=== PATIENT | male | born 1980 | race African-American/Black ===

== ENCOUNTER 2017-01-27 18:01 | Inpatient (IN) | payer OTHER ==
[~2017-01-27] VITALS: Ht 182.9 cm; Wt 103.1 kg
[2017-01-27 18:03] VITALS: BP 137/74; PULSE 89; RESP 14; TEMP 98.6; O2SAT 98
--- NOTE | 2017-01-27 18:35 | PD ---
HPI Chief Complaint: Psychiatric Symptoms Time Seen by Provider: 18:25 Travel History International Travel<30 days: No Contact w/Intl Traveler<30days: No Traveled to known affect area: No History of Present Illness HPI This is a 36-year-old male who reports a history of schizophrenia and diabetes who presents voluntarily requesting psychiatric evaluation. He reports that he has a long-standing history of schizophrenia with auditory hallucinations telling him to kill himself. Over the past few days some Tums have been worse which prompted evaluation today. He reports that in the past he was seeing a psychiatrist, he does not remember the name of the psychiatrist, but secondary to insurance reasons he no longer sees him. He denies any homicidal ideation. He endorses cocaine use, most recently yesterday. Denies any other drug use. His only other complaint at this time is of mild blurred vision which he was experiencing earlier today in both eyes, has mostly resolved, and he felt that it may be secondary to high blood sugar. He reports a history of diabetes, previously was on metformin but quit using it "a while ago." PFSH Past Medical History Diabetes: Yes Schizophrenia: Yes Social History Alcohol Use: No Tobacco Use: Yes Substance Use: Yes (cocaine) Allergies-Medications (Allergen,Severity, Reaction): Coded Allergies: No Known Allergies (Unverified , 01/27/17) Reported Meds & Prescriptions Reported Meds & Active Scripts Active No Active Prescriptions or Reported Medications Review of Systems Except as stated in HPI: all other systems reviewed are Neg Physical Exam Narrative GENERAL: Well-developed well-nourished male in no acute distress answering questions appropriately SKIN: Warm and dry. HEAD: Atraumatic. Normocephalic. EYES: Pupils equal and round. No scleral icterus. No injection or drainage. ENT: No nasal bleeding or discharge. Mucous membranes pink and moist. NECK: Trachea midline. No JVD. CARDIOVASCULAR: Regular rate and rhythm. No murmur appreciated. RESPIRATORY: No accessory muscle use. Clear to auscultation. Breath sounds equal bilaterally. GASTROINTESTINAL: Abdomen soft, non-tender, nondistended. Hepatic and splenic margins not palpable. MUSCULOSKELETAL: No obvious deformities. No clubbing. No cyanosis. No edema. NEUROLOGICAL: Awake and alert. No obvious cranial nerve deficits. Motor grossly within normal limits. Normal speech. PSYCHIATRIC: Appropriate mood and affect; insight and judgment normal. Data Data Last Documented VS Vital Signs Date Time Temp Pulse Resp B/P Pulse Ox O2 Delivery O2 Flow Rate FiO2 01/27/17 18:40 87 14 131/76 98 Room Air 01/27/17 18:03 98.6 Orders Complete Blood Count With Diff (01/27/17 18:32) Comprehensive Metabolic Panel (01/27/17 18:32) Urinalysis - C+S If Indicated (01/27/17 18:32) Psych Screen (01/27/17 18:32) Drug Screen, Random Urine (01/27/17 18:32) Alcohol (Ethanol) (01/27/17 18:32) Salicylates (Aspirin) (01/27/17 18:32) Tylenol (Acetaminophen) (01/27/17 18:32) Labs Laboratory Tests Test 01/27/17 18:45 White Blood Count 5.5 TH/MM3 Red Blood Count 4.59 MIL/MM3 Hemoglobin 14.3 GM/DL Hematocrit 40.5 % Mean Corpuscular Volume 88.4 FL Mean Corpuscular Hemoglobin 31.2 PG Mean Corpuscular Hemoglobin 35.3 % Concent Red Cell Distribution Width 13.7 % Platelet Count 185 TH/MM3 Mean Platelet Volume 9.9 FL Neutrophils (%) (Auto) 47.6 % Lymphocytes (%) (Auto) 39.1 % Monocytes (%) (Auto) 11.9 % Eosinophils (%) (Auto) 1.1 % Basophils (%) (Auto) 0.3 % Neutrophils # (Auto) 2.6 TH/MM3 Lymphocytes # (Auto) 2.1 TH/MM3 Monocytes # (Auto) 0.7 TH/MM3 Eosinophils # (Auto) 0.1 TH/MM3 Basophils # (Auto) 0.0 TH/MM3 CBC Comment DIFF FINAL Differential Comment Sodium Level 135 MEQ/L Potassium Level 3.4 MEQ/L Chloride Level 101 MEQ/L Carbon Dioxide Level 26.2 MEQ/L Anion Gap 8 MEQ/L Blood Urea Nitrogen 10 MG/DL Creatinine 1.21 MG/DL Estimat Glomerular Filtration 82 ML/MIN Rate Random Glucose 139 MG/DL Calcium Level 9.1 MG/DL Total Bilirubin 0.6 MG/DL Aspartate Amino Transf 18 U/L (AST/SGOT) Alanine Aminotransferase 34 U/L (ALT/SGPT) Alkaline Phosphatase 74 U/L Total Protein 7.7 GM/DL Albumin 3.5 GM/DL Salicylates Level 3.5 MG/DL Acetaminophen Level LESS THAN 2.0 MCG/ML Ethyl Alcohol Level LESS THAN 3 MG/DL MDM Medical Decision Making Medical Screen Exam Complete: Yes Emergency Medical Condition: Yes Medical Record Reviewed: Yes Differential Diagnosis Schizophrenia, acute psychosis, substance induced mood disorder, major depressive disorder, adjustment reaction Narrative Course 36-year-old male with history of schizophrenia presents voluntarily requesting psychiatric evaluation of auditory hallucinations, suicidal ideation. Mental health screening discussed with the patient. Psychiatric screen ordered. The patient's lab work has been reviewed. He is medically cleared for psychiatric disposition. Diagnosis Primary Impression: Schizophrenia Qualified Code: F20.9 - Schizophrenia, unspecified type Scripts No Active Prescriptions or Reported Meds Lonnie Thomas Jan 27, 2017 18:35
[2017-01-27 18:40] VITALS: BP 131/76; PULSE 87; RESP 14; O2SAT 98
[2017-01-27 19:15] LABS: AUTOMATED NEUTROPHIL # 2.6 TH/MM3 (1.8-7.7); BASOPHIL % 0.3 % (0.0-2.0); EOSINOPHIL # 0.1 TH/MM3 (0-0.4); EOSINOPHIL % 1.1 % (0.0-4.0); HEMATOCRIT 40.5 % (39.0-51.0); HEMO FLAGS DIFF FINAL; LYMPH % 39.1 % (9.0-44.0); LYMPHOCYTE # 2.1 TH/MM3 (1.0-4.8); MEAN CELL VOLUME 88.4 FL (80.0-100.0); MEAN CORPUSCULAR HEMOGLOBIN 31.2 PG (27.0-34.0); MEAN CORPUSCULAR HGB CONC 35.3 % (32.0-36.0); MONO % 11.9 % (0.0-8.0); NEUT % 47.6 % (16.0-70.0); PLATELET COUNT 185 TH/MM3 (150-450); RED BLOOD COUNT 4.59 MIL/MM3 (4.50-5.90); RED CELL DISTRIBUTION WIDTH 13.7 % (11.6-17.2); WHITE BLOOD COUNT 5.5 TH/MM3 (4.0-11.0)
[2017-01-27 19:38] LABS: ANION GAP 8 MEQ/L (5-15); AST (GOT) 18 U/L (15-37); BICARBONATE 26.2 MEQ/L (21.0-32.0); BLOOD UREA NITROGEN 10 MG/DL (7-18); CHLORIDE 101 MEQ/L (98-107); GLOMERULAR FILTRATION RATE 82 ML/MIN (>89); POTASSIUM 3.4 MEQ/L (3.5-5.1); SODIUM (NA) 135 MEQ/L (136-145)
[2017-01-27 19:42] LABS: ACETAMINOPHEN LESS THAN 2.0 MCG/ML (10.0-30.0); ALKALINE PHOSPHATASE 74 U/L (45-117); ALT (GPT) 34 U/L (12-78); TOTAL BILIRUBIN ADULT 0.6 MG/DL (0.2-1.0)
[2017-01-27] MEDS ORDERED: POTASSIUM CHLORIDE 20 MEQ CONTROLLED RELEASE TAB PO ONE (20:00)
[2017-01-27] MEDS ORDERED: LORazepam 2 MG/ML VIAL IM ONE ×2 (22:15)
[2017-01-27] MEDS ORDERED: OLANZapine IM 10 MG VIAL IM ONE (22:15)
[2017-01-27 22:28] VITALS: BP 127/78; PULSE 81; RESP 18; O2SAT 98
[2017-01-27 23:36] LABS: AMPHETAMINE, URINE NEG (NEG); BARBITURATES, URINE NEG (NEG); COCAINE, URINE POS (NEG)
[2017-01-27 23:52] LABS: BLOOD, URINE NEG (NEG); COMMENT (UR) CULT NOT INDICATED; CULTURE IF INDICATED CULT NOT INDICATED; GLUCOSE,URINE NEG (NEG); KETONE, URINE NEG (NEG); NITRITE,URINE NEG (NEG); PH, URINE 6.5 (5.0-8.5); URINE COLOR YELLOW (YELLW/STRAW)
[2017-01-28 02:16] VITALS: BP 130/81; PULSE 68; RESP 20; TEMP 97.2; O2SAT 100
[2017-01-28 06:17] VITALS: BP 137/87; PULSE 65; RESP 20; TEMP 96.8; O2SAT 99
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
[2017-01-28] MEDS ORDERED: ALUMINUM/MAGNESIUM/SIMETH 30 ML CUP PO PRN (11:00)
[2017-01-28] MEDS ORDERED: MAGNESIUM HYDROXIDE SUSP 30 ML CUP PO PRN (11:00)
[2017-01-28] MEDS ORDERED: ACETAMINOPHEN 325 MG TAB PO PRN (11:00)
[2017-01-28 12:14] VITALS: BP 131/87; PULSE 88; RESP 18; TEMP 97.9; O2SAT 98
--- NOTE | 2017-01-28 13:22 | PD.CONS ---
[facility] By [facility] team Reason for Consult DM evaluate and treat Primary Care Physician No Primary Care Physician Diagnoses: History of Present Illness Written by Nkechi Escobar, acting as scribe for Dr. Fregoso on 01/28/17 at 13:28. This a 36-year-old male patient with past medical history which includes diabetes mellitus type 2, schizophrenia and hypertension. Patient is currently an inpatient psychiatric center as he has been hearing voices to a telemetry him to commit suicide. Patient reports yesterday he tried to jump in front of a car in a suicide attempt and was later brought to the emergency department. Patient currently offers no specific medical complaints. Patient does report he was on metformin for his diabetes management but had GI upset was unable to tolerate this and has not taken medication for his diabetes for, "a while." Patient also reports he stopped taking psychiatric medications as he cannot afford them. Patient denies shortness of breath chest pain nausea vomiting diarrhea comes patient fevers or chills Review of Systems Except as stated in HPI: all other systems reviewed are Neg Past Family Social History Allergies: Coded Allergies: No Known Allergies (Unverified , 01/27/17) Past Medical History Diabetes, hypertension, schizophrenia Past Surgical History Left arm reconstruction status post trauma Right hip surgery status post trauma Reported Medications Patient reports he does not take any medications at home a daily basis he was unable to afford his psychiatric medications and unable to tolerate his metformin. Active Ordered Medications Current Medications Medications (Trade) Dose Ordered Sig/Bernardo Route Start Time Stop Time Status Last Admin (Tylenol) 650 mg Q4H PRN PO 01/28/17 11:00 (Milk Of Magnesia Liq) 30 ml DAILY PRN PO 01/28/17 11:00 (Mag-Al Plus Susp Liq) 30 ml Q6H PRN PO 01/28/17 11:00 Family History Mother had heart disease, lupus and hypertension Father secondary to aneurysm Social History Denies EtOH use Positive tobacco use approximal 1 pack per week Positive cocaine use Denies illicit drug use Physical Exam Vital Signs Vital Signs Date Time Temp Pulse Resp B/P Pulse Ox O2 Delivery O2 Flow Rate FiO2 01/28/17 12:14 97.9 88 18 131/87 98 01/28/17 06:17 96.8 65 20 137/87 99 01/28/17 02:16 97.2 68 20 130/81 100 01/27/17 22:28 81 18 127/78 98 Room Air 01/27/17 18:40 87 14 131/76 98 Room Air 01/27/17 18:03 98.6 89 14 137/74 98 Physical Exam GENERAL: This is a well-nourished, well-developed patient, in no apparent distress. SKIN: No rashes, ecchymoses or lesions. Cool and dry. HEAD: Atraumatic. Normocephalic. No temporal or scalp tenderness. EYES: Extraocular motions intact. No scleral icterus. No injection or drainage. CARDIOVASCULAR: Regular rate and rhythm without murmurs, gallops, or rubs. RESPIRATORY: Clear to auscultation. Breath sounds equal bilaterally. No wheezes , rales, or rhonchi. GASTROINTESTINAL: Abdomen soft, non-tender, nondistended. No guarding. MUSCULOSKELETAL: Extremities without clubbing, cyanosis, or edema. No joint tenderness, effusion, or edema noted. No calf tenderness. Negative Homans sign bilaterally. NEUROLOGICAL: Awake and alert. No focal deficits appreciated. Motor and sensory grossly within normal limits. Five out of 5 muscle strength in all muscle groups. Normal speech. Laboratory Laboratory Tests Test 01/27/17 01/27/17 18:45 23:15 White Blood Count 5.5 Red Blood Count 4.59 Hemoglobin 14.3 Hematocrit 40.5 Mean Corpuscular Volume 88.4 Mean Corpuscular Hemoglobin 31.2 Mean Corpuscular Hemoglobin 35.3 Concent Red Cell Distribution Width 13.7 Platelet Count 185 Mean Platelet Volume 9.9 Neutrophils (%) (Auto) 47.6 Lymphocytes (%) (Auto) 39.1 Monocytes (%) (Auto) 11.9 Eosinophils (%) (Auto) 1.1 Basophils (%) (Auto) 0.3 Neutrophils # (Auto) 2.6 Lymphocytes # (Auto) 2.1 Monocytes # (Auto) 0.7 Eosinophils # (Auto) 0.1 Basophils # (Auto) 0.0 CBC Comment DIFF FINAL Differential Comment Sodium Level 135 Potassium Level 3.4 Chloride Level 101 Carbon Dioxide Level 26.2 Anion Gap 8 Blood Urea Nitrogen 10 Creatinine 1.21 Estimat Glomerular Filtration 82 Rate Random Glucose 139 Calcium Level 9.1 Total Bilirubin 0.6 Aspartate Amino Transf 18 (AST/SGOT) Alanine Aminotransferase 34 (ALT/SGPT) Alkaline Phosphatase 74 Total Protein 7.7 Albumin 3.5 Salicylates Level 3.5 Acetaminophen Level LESS THAN 2.0 Ethyl Alcohol Level LESS THAN 3 Urine Color YELLOW Urine Turbidity CLEAR Urine pH 6.5 Urine Specific [place] 1.012 Urine Protein NEG Urine Glucose (UA) NEG Urine Ketones NEG Urine Occult Blood NEG Urine Nitrite NEG Urine Bilirubin NEG Urine Urobilinogen 2.0 Urine Leukocyte Esterase NEG Urine RBC 8 Urine WBC 4 Microscopic Urinalysis Comment CULT NOT INDICATED Urine Opiates Screen NEG Urine Barbiturates Screen NEG Urine Amphetamines Screen NEG Urine Benzodiazepines Screen NEG Urine Cocaine Screen POS Urine Cannabinoids Screen NEG Result Diagram: 01/27/17 [id number] Assessment and Plan Problem List: (1) Schizophrenia ICD Code: F20.9 Status: Acute (2) DM (diabetes mellitus) ICD Code: E11.9 Status: Chronic Assessment and Plan This a 36-year-old male patient with past medical history which includes diabetes mellitus type 2, schizophrenia and hypertension. Patient is currently an inpatient psychiatric center as he has been hearing voices to a telemetry him to commit suicide. Patient reports yesterday he tried to jump in front of a car in a suicide attempt and was later brought to the emergency department. Patient currently offers no specific medical complaints. Patient does report he was on metformin for his diabetes management but had GI upset was unable to tolerate this and has not taken medication for his diabetes for, "a while." Schizophrenia Suicide attempt- management per psychiatric team DM- patient reports he has been unable to tolerate metformin in the past HA1c pending diabetic diet Accuchecks ACHS HTN monitor BP tread does not appear to need BP medication at this point Hypokalemia- potassium level 3.4 replaced with Potassium chloride 20 meq PO per ER Tobacco abuse patient counseled encouraged to abstain Substance abuse- cocaine Patient at [facility] Risk of Cocaine Encouraged to Abstain DVT prophylaxis patient is low risk and ambulatory Discussed with patient and nursing This note was transcribed by santiago Escobar. I, Dr. Sofy Fregoso personally performed the history, physical exam, and medical decision making; and confirmed the accuracy of the information in the transcribed note. Authenticated by Dr. Sofy Fregoso on 01/28/17 at 1335. Problem Qualifiers (1) Schizophrenia: Qualified Code: F20.9 - Schizophrenia, unspecified type Nkechi Escobar Jan 28, 2017 13:22 Sofy Fregoso MD Jan 28, 2017 14:01
[2017-01-29 05:57] VITALS: BP 103/67; PULSE 74; RESP 18; TEMP 97.8; O2SAT 98
[2017-01-29 11:32] LABS: ANION GAP 9 MEQ/L (5-15); BICARBONATE 28.9 MEQ/L (21.0-32.0); BLOOD UREA NITROGEN 12 MG/DL (7-18); CHLORIDE 102 MEQ/L (98-107); GLOMERULAR FILTRATION RATE 77 ML/MIN (>89); HDL CHOLESTEROL 33.3 MG/DL (40.0-60.0); LDL CHOLESTEROL 124 MG/DL (0-99); POTASSIUM 4.5 MEQ/L (3.5-5.1); SODIUM (NA) 140 MEQ/L (136-145)
[2017-01-29] MEDS ORDERED: hydrOXYzine HCL 50 MG TAB PO PRN (14:15)
[2017-01-29] MEDS ORDERED: MAGNESIUM HYDROXIDE SUSP 30 ML CUP PO PRN (14:15)
[2017-01-29] MEDS ORDERED: diphenhydrAMINE HCL 50 MG CAP PO PRN (14:15)
[2017-01-29] MEDS ORDERED: ALUMINUM/MAGNESIUM/SIMETH 30 ML CUP PO PRN (14:15)
--- NOTE | 2017-01-29 14:22 | HHI.HP ---
Provisional Diagnosis Admission Date Jan 28, 2017 at 10:30 [place] I. Schizophrenia chronic paranoid type f 20.0 Certification of Person's Competence To Provide Express and Informed Consent I have personally examined Bulmaro Mckeon , a person being served at [facility] on, Jan 29, 2017 14:09. Express and informed consent means consent voluntarily given in writing, by a competent person, after sufficient explanation and disclosure of the subject matter involved to enable the person to make a knowing and willful decision without any element of force, fraud, deceit, duress, or other form of constraint or coercion. This person is 18 years of age or older, is not now known to be incompetent to consent to treatment with a guardian advocate, and does not have a health care surrogate or proxy currently making medical treatment decisions. I have found this person to be one of the following: []xxx Competent to provide express and informed consent, as defined above, for voluntary admission to this facility and is competent to provide express and informed consent for treatment. He/she has the consistent capacity to make well reasoned, willful, and knowing decisions concerning his or her medical or mental health treatment. The person fully and consistently understands the purpose of the admission for examination/placement and is fully capable of personally exercising all rights assured under [place] Incompetent to provide express and informed consent to voluntary admission, and this is incompetent to provide express and informed consent to treatment. The person must be transferred to involuntary status and a petition for a guardian advocate filed with the Circuit Court. [] Refusing to provide express and informed consent to voluntary admission but is competent to provide express and informed consent for treatment. The person must be discharged or transferred to involuntary status. Form shall be completed within 24 hours of a person's arrival at the receiving facility and filed in the clinical record of each person: 1. Admitted on a voluntary basis 2. Permitted to provide express and informed consent to his/her own treatment 3. Allowed to transfer from involuntary to voluntary status 4. Prior to permitting a person to consent to his or her own treatment after having been previously found incompetent to consent to treatment. History of Present Illness Capacity: Has Capacity HPI Patient is a 36 year-old -[place] male comes here voluntarily asking for help with his suicidal ideation with increasingly threatening auditory hallucinations of a command nature. Patient seen screened in the ED urine toxicology positive for cocaine. This is patient's first visit to [facility]. At the present time patient sitting quietly on his bed in his room. Nurse Juju present throughout session. Patient gives a history of mental illness going back to his late adolescence with command auditory hallucinations they have never totally gone away. He has also had issues with intermittent cocaine use over a number of years. To the point where he is spent 8 behaviors in incarceration related to that he states was initially a second-degree murder charge that was drug related. He denies any other significant drug use except frequent marijuana use. He states he lives with his family. There is getting more short tempered with them the voices continued to get worse to him to hurt himself and perhaps or other people. He denies any physical or sexual abuse as a child. He is vague about any mental illness in the family of origin. Patient does have a 6-year-old daughter who is staying with her mother. Patient appears to have animosity towards the mother though affection to his daughter. He is afraid the voices may become more command telling him to do bad things to the mother of his child. Patient states she has some has college education, does not have a GED. He states his reading is okay and his mathematics is okay. Patient is vague about whether he would take the suicide pill. In any event at this time patient does meet criteria for an acute inpatient psychiatric hospitalization. I feel he does have capacity to sign for admission and for medications thus we'll allow him to continue on a voluntary basis. We did discuss medications. Considering the addictive peace of him will refrain from benzodiazepines or opiates. We'll set him on Seroquel 25 mg at 8 AM noon and 6 PM and 100 mg at at bedtime since he does have some significant insomnia. Hopeless be fairly short stay can stabilize him medically return to stay with his family for follow-up services in the community Review of Systems Constitutional: DENIES: Diaphoretic episodes, Fatigue, Fever, Weight gain, Weight loss, Chills, Dizziness, Change in appetite, Night Sweats Endocrine: DENIES: Heat/cold intolerance, Polydipsia, Polyuria, Polyphagia Eyes: DENIES: Blurred vision, Diplopia, Eye inflammation, Eye pain, Vision loss , Photosensitivity, Double Vision Ears, nose, mouth, throat: DENIES: Tinnitus, Hearing loss, Vertigo, Nasal discharge, Oral lesions, Throat pain, Hoarseness, Ear Pain, Running Nose, Epistaxis, Sinus Pain, Toothache, Odynophagia Respiratory: DENIES: Apneas, Cough, Snoring, Wheezing, Hemoptysis, Sputum production, Shortness of breath Cardiovascular: DENIES: Chest pain, Palpitations, Syncope, Dyspnea on Exertion , PND, Lower Extremity Edema, Orthopnea, Claudication Gastrointestinal: DENIES: Abdominal pain, Black stools, Bloody stools, Constipation, Diarrhea, Nausea, Vomiting, Difficulty Swallowing, Anorexia Genitourinary: DENIES: Sexual dysfunction, Urinary frequency, Urinary incontinence, Urgency, Hematuria, Dysuria, Nocturia, Penile Discharge, Testicular Pain, Testicular Swelling Musculoskeletal: DENIES: Joint pain, Muscle aches, Stiffness, Joint Swelling, Back pain, Neck pain Integumentary: DENIES: Abnormal pigmentation, Nail changes, Pruritus, Rash Hematologic/lymphatic: DENIES: Bruising, Lymphadenopathy Immunologic/allergic: DENIES: Eczema, Urticaria Neurologic: DENIES: Abnormal gait, Headache, Localized weakness, Paresthesias, Seizures, Speech Problems, Tremor, Poor Balance Psychiatric: COMPLAINS OF: Depression, Hallucinations, Suicidal Ideation, Homicidal Ideation Past Psych History Psychological trauma history Patient denies physical or sexual abuse Violence risk - others (6 mos) Patient's has some thoughts of harming his child mother if she does not allow him to see her that appears to be exacerbated by the auditory hallucinations Violence risk - self (6 mos) Patient vague about taking the suicide pill Substance Abuse History Drugs/Alcohol past 12 months Active cocaine abuser history of marijuana abuse Past Family Social History Coded Allergies: No Known Allergies (Unverified , 01/27/17) Past Medical History Vague history of hypertension and diabetes No Active Prescriptions or Reported Meds Current Medications Medications (Trade) Dose Ordered Sig/Bernardo Route Start Time Stop Time Status Last Admin (Tylenol) 650 mg Q4H PRN PO 01/28/17 11:00 (Milk Of Magnesia Liq) 30 ml DAILY PRN PO 01/28/17 11:00 (Mag-Al Plus Susp Liq) 30 ml Q6H PRN PO 01/28/17 11:00 (Benadryl) 50 mg HS PRN PO 01/29/17 14:15 UNV (Tylenol) 650 mg Q4H PRN PO 01/29/17 14:15 UNV (Milk Of Magnesia Liq) 30 ml DAILY PRN PO 01/29/17 14:15 UNV (Mag-Al Plus Susp Liq) 30 ml Q6H PRN PO 01/29/17 14:15 UNV (Atarax) 50 mg Q6H PRN PO 01/29/17 14:15 UNV Family History Denies history of mental illness and family Social History Patient lives with family has 6-year-old daughter lives with her mother Patient's Strengths (min. 2) Patient verbal able access healthcare Physical Exam Patient seen screened in ED exam reviewed and agreed with patient seen sitting quietly on his bed in his room with staff as mentioned above. Is in no acute distress, is back is supple is no respiratory distress, no complaints of abdominal pain, patient move all 4 extremities without difficulty, no abnormal motor movement noted Vital Signs Vital Signs Date Time Temp Pulse Resp B/P Pulse Ox O2 Delivery O2 Flow Rate FiO2 01/29/17 05:57 97.8 74 18 103/67 98 01/27/17 22:28 Room Air Mental Status Examination Alert oriented Afro-Canadian male sitting somewhat antsy behavior, is somewhat guarded but overall cooperative with fair eye contact Appearance Clean neatly Speech: Unremarkable Orientation: x3 Memory: Unremarkable (fair) Thought Process: Linear Thought Content: Paranoid Language Fair Fund of Knowledge Fair Hallucination Type: Auditory (demanding intrusive somewhat frightening) Attention and Concentration: Other (fair) Suicidal Ideation: Yes Previous Suicide Attempts: Yes Homicidal Ideation: Yes (vague references towards his child mother appears to be influenced by the auditory hallucinations) Previous Homicide Attempts: Yes (patient incarcerated for over 8 years for what was initially charged as second-degree murder) Insight: Poor Judgment: Poor Affect: Other (slight increase range and intensity) Mood: Sad, Irritable (mildly) Motor Activity: Normal gait Assessment & Plan Problem List: (1) Schizophrenia ICD Code: F20.9 Assessment & Plan Estimated LOS 5-7 days patient meets criteria for involuntary inpatient psychiatric hospitalization. We will hospitalist consult was related to his hypertension and diabetes, will start him on Seroquel 25 mg 8 AM noon and 6 PM and 100 mg at at bedtime. Hopeless to be fairly short stay with return her to his family home with outpatient follow-up Discharge Planning To be determined Request HC Surrog/Guard Advoc?: No Problem Qualifiers (1) Schizophrenia: Qualified Code: F20.0 - Paranoid schizophrenia Anthony Andrews MD Jan 29, 2017 14:22
[2017-01-29 16:00] VITALS: BP 132/83; PULSE 86; RESP 18; TEMP 98.2; O2SAT 98
[2017-01-29 16:18] LABS: HEMOGLOBIN A1a 1.2 %; HEMOGLOBIN A1b 1.1 %; HEMOGLOBIN F 1.4 %; HEMOGLOBIN LA1C 2.1 %
[2017-01-29] MEDS ORDERED: GLUCAGON 1 MG/ML VIAL OTHER PRN (17:15)
[2017-01-29] MEDS ORDERED: DEXTROSE 50% IN WATER 50 ML VIAL(D50) IV PRN (17:15)
[2017-01-29] MEDS: QUEtiapine FUMARATE 25 MG TAB PO SCH (17:43)
[2017-01-29 18:00] VITALS: BP 132/83; PULSE 86; RESP 18; TEMP 98.2; O2SAT 98
[2017-01-29] MEDS: QUEtiapine FUMARATE 100 MG TAB PO SCH (22:30)
[2017-01-29] MEDS: INSULIN DETEMIR 100 UNITS/ML VIAL SQ SCH (22:43)
[2017-01-29] MEDS: INSULIN ASPART SUPPLEMENTAL SCALE SQ SCH (22:44)
[2017-01-30 06:00] VITALS: BP 114/72; PULSE 82; RESP 18; TEMP 97.6; O2SAT 98
[2017-01-30] MEDS: INSULIN ASPART SUPPLEMENTAL SCALE SQ SCH ×4 (06:37→21:00)
[2017-01-30] MEDS: QUEtiapine FUMARATE 25 MG TAB PO SCH ×3 (09:07→17:55)
[2017-01-30] MEDS: ATORVASTATIN 20 MG TAB PO SCH (11:30)
[2017-01-30] MEDS: glipiZIDE 5 MG TAB PO SCH (11:30)
--- NOTE | 2017-01-30 12:15 | HHI.PYPN ---
Subjective Remarks Patient seen in his room with nurse Juju, and family practice resident Markos, chart reviewed, patient compliant medications. What sedated, though may be a response to the at bedtime Seroquel. He now denies suicidality homicidality voices or visions. Still somewhat sad. Still has some ambivalent feelings towards his child's mother. For now continue treatment Review of Systems Except as stated in HPI: all other systems reviewed are Neg Objective Alert: Yes [place]: Person (ox4) Mood: Depressed, Other (withdrawn) Affect: Restricted Memory Intact: Comment (Answered most question s with I dont't know" ) Hallucinations: Auditory (Tell hinm to hurt himself) Delusions: No Delusion Type: Paranoid Suicidal: Ideation (hanf hiomself or cut himself) Homicidal: Ideation (denies any) Insight/Judgment Poor Vitals/IOs Vital Signs Date Time Temp Pulse Resp B/P Pulse Ox O2 Delivery O2 Flow Rate FiO2 01/30/17 06:00 97.6 82 18 114/72 98 01/27/17 22:28 Room Air Intake and Output 01/29/17 01/29/17 01/30/17 08:00 16:00 00:00 Intake Total 240 ml Balance 240 ml Assessment & Plan Problem List: (1) Schizophrenia ICD Code: F20.9 Assessment & Plan Estimated LOS: days patient psychosis is softening, is compliant medication for now continue treatment Justification for Cont. Inpt. At this time patient will decompensate if placed in a lower level of care Discharge Planning Be determined Request HC Surrog/Guard Advoc?: No Problem Qualifiers (1) Schizophrenia: Qualified Code: F20.0 - Paranoid schizophrenia Anthony Andrews MD Jan 30, 2017 12:15
--- NOTE | 2017-01-30 16:39 | HHI.PR ---
Subjective Remarks The patient is in the recreation room he appears in not acute distress. Denies having any diarrhea or constipation. No nausea or vomiting. Patient says he cannot take metformin because he had an allergic reaction, says he feels very tired and his upset and he stopped taking metformin a while back. His diabetes is uncontrolled. Discussed in length regarding treatment plan. No fever or chills. Objective Vitals Vital Signs Date Time Temp Pulse Resp B/P Pulse Ox O2 Delivery O2 Flow Rate FiO2 01/30/17 06:00 97.6 82 18 114/72 98 01/29/17 18:00 98.2 86 18 132/83 98 I/O 01/29/17 01/29/17 01/29/17 01/30/17 01/30/17 01/30/17 07:00 15:00 23:00 07:00 15:00 23:00 Intake Total 240 ml 240 ml Balance 240 ml 240 ml Intake Oral 240 ml 240 ml Result Diagram: 01/27/17 1845 01/29/17 0806 Objective Remarks GENERAL: This is a well-nourished, well-developed patient, in no apparent distress. EYES: Extraocular motions intact. No scleral icterus. No injection or drainage. CARDIOVASCULAR: Regular rate and rhythm without murmurs, gallops, or rubs. RESPIRATORY: Clear to auscultation. Breath sounds equal bilaterally. No wheezes , rales, or rhonchi. GASTROINTESTINAL: Abdomen soft, non-tender, nondistended. No guarding. MUSCULOSKELETAL: Extremities without clubbing, cyanosis, or edema. No joint tenderness, effusion, or edema noted. No calf tenderness. Negative Homans sign bilaterally. NEUROLOGICAL: Awake and alert. No focal deficits appreciated. Motor and sensory grossly within normal limits. Five out of 5 muscle strength in all muscle groups. Normal speech. A/P Problem List: (1) Schizophrenia ICD Code: F20.9 Status: Acute (2) DM (diabetes mellitus) ICD Code: E11.9 Status: Chronic Assessment and Plan This a 36-year-old male patient with past medical history which includes diabetes mellitus type 2, schizophrenia and hypertension. Patient is currently an inpatient psychiatric center as he has been hearing voices to a telemetry him to commit suicide. Patient reports yesterday he tried to jump in front of a car in a suicide attempt and was later brought to the emergency department. Patient currently offers no specific medical complaints. Patient does report he was on metformin for his diabetes management but had GI upset was unable to tolerate this and has not taken medication for his diabetes for, "a while." Schizophrenia Suicide attempt- management per psychiatric team DM2 uncontrolled. A1c is 9.5 patient reports he has been unable to tolerate metformin in the past HA1c 9.5 diabetic diet Accuchecks ACHS. Started levemir. Will add glipizide. Monitor BS and adjust meds as indicated. Counselled patient regarding compliance. HTN -monitor BP tread does not appear to need BP medication at this point Hypokalemia- Monitor and replace as need. replaced with Potassium chloride 20 meq PO per ER Tobacco use patient counseled encouraged to abstain Substance use- cocaine Patient at The Health Risk of Cocaine Encouraged to Abstain DVT prophylaxis patient is low risk and ambulatory Discussed with the patient and the nurse Problem Qualifiers (1) Schizophrenia: Qualified Code: F20.0 - Paranoid schizophrenia Radha Calvert MD Jan 30, 2017 16:39
[2017-01-30 19:11] VITALS: BP 118/75; PULSE 90; RESP 18; TEMP 98.6; O2SAT 97
[2017-01-30] MEDS: QUEtiapine FUMARATE 100 MG TAB PO SCH (20:14)
[2017-01-30] MEDS: INSULIN DETEMIR 100 UNITS/ML VIAL SQ SCH (21:41)
[2017-01-30] MEDS: ACETAMINOPHEN 325 MG TAB PO PRN (21:43)
[2017-01-31 06:02] VITALS: BP 118/74; PULSE 80; RESP 18; TEMP 97.6
[2017-01-31] MEDS: INSULIN ASPART SUPPLEMENTAL SCALE SQ SCH ×4 (06:12→21:00)
[2017-01-31] MEDS: glipiZIDE 5 MG TAB PO SCH (08:00)
[2017-01-31] MEDS: QUEtiapine FUMARATE 25 MG TAB PO SCH ×3 (08:00→17:29)
[2017-01-31] MEDS: ATORVASTATIN 20 MG TAB PO SCH (08:35)
[2017-01-31] MEDS: ACETAMINOPHEN 325 MG TAB PO PRN (08:39)
--- NOTE | 2017-01-31 12:08 | HHI.PYPN ---
Subjective Remarks Patient seen today in [place] with floor staff, chart review, patient compliant medication. Patient states she slept well is feeling less sedation this a.m. Now denies suicidality homicidality voices or visions. It appears she showing some mild increase in his processing and insight into his need to maintain control and sobriety if he wishes to gain more relationship with his daughter. For now continue treatment consider discharge 1-2 days patient states to returning home to his mother I suggested he call her today to verify this Review of Systems Except as stated in HPI: all other systems reviewed are Neg Objective Alert: Yes [place]: Person (ox4) Mood: Depressed, Other (withdrawn) Affect: Restricted Memory Intact: Comment (Answered most question s with I dont't know" ) Hallucinations: Auditory (markedly decreased) Delusions: No Delusion Type: Paranoid (markedly decreased) Suicidal: Ideation (hanf hiomself or cut himself) Homicidal: Ideation (denies any) Insight/Judgment Poor Vitals/IOs Vital Signs Date Time Temp Pulse Resp B/P Pulse Ox O2 Delivery O2 Flow Rate FiO2 01/31/17 06:02 97.6 80 18 118/74 01/30/17 19:11 97 01/27/17 22:28 Room Air Intake and Output 01/30/17 01/30/17 01/30/17 07:59 15:59 23:59 Intake Total 240 ml Balance 240 ml Assessment & Plan Problem List: (1) Schizophrenia ICD Code: F20.9 Assessment & Plan Estimated LOS: days patient psychosis anger paranoia are diminishing. Denies suicidality at this time states voices are almost gone. Now continue treatment Justification for Cont. Inpt. At this time patient will decompensate if placed in a lower level of care Discharge Planning To be determined Request HC Surrog/Guard Advoc?: No Problem Qualifiers (1) Schizophrenia: Qualified Code: F20.0 - Paranoid schizophrenia Anthony Andrews MD Jan 31, 2017 12:08
[2017-01-31 16:30] VITALS: BP 124/75; PULSE 87; RESP 18; TEMP 98.2
[2017-01-31] MEDS: INSULIN DETEMIR 100 UNITS/ML VIAL SQ SCH (21:14)
[2017-01-31] MEDS: QUEtiapine FUMARATE 100 MG TAB PO SCH (21:19)
[2017-02-01 05:35] VITALS: BP 119/70; PULSE 88; RESP 18; TEMP 97.9; O2SAT 98
[2017-02-01] MEDS: INSULIN ASPART SUPPLEMENTAL SCALE SQ SCH ×2 (06:06→11:00)
[2017-02-01] MEDS: glipiZIDE 5 MG TAB PO SCH (08:27)
[2017-02-01] MEDS: ATORVASTATIN 20 MG TAB PO SCH (08:27)
[2017-02-01] MEDS: QUEtiapine FUMARATE 25 MG TAB PO SCH ×2 (08:27→11:52)
[2017-02-01] MEDS ORDERED: QUET1TAB7 PO (09:54)
[2017-02-01] MEDS ORDERED: LEVEMIR SQ (09:54)
[2017-02-01] MEDS ORDERED: QUET1TAB8 PO (09:54)
[2017-02-01] MEDS ORDERED: ATOR20TA15 PO (09:54)
[2017-02-01] MEDS ORDERED: GLIP5 PO (09:54)
--- NOTE | 2017-02-01 10:03 | HHI.DS ---
Psychiatry Discharge Summary Inpatient Psychiatric care?: Yes Advance Directive: No Reason Not Provided: patient refused. Mental Health AdvanceDirective: No Health Care Proxy: No Admission Admission Date Jan 28, 2017 at 10:30 Admission Diagnosis: (1) Cocaine abuse ICD Code: F14.10 (2) Schizophrenia ICD Code: F20.9 Brief History Patient is a 36 year-old -[place] male comes here voluntarily asking for help with his suicidal ideation with increasingly threatening auditory hallucinations of a command nature. Patient seen screened in the ED urine toxicology positive for cocaine. This is patient's [facility] visit to [facility]. At the present time patient sitting quietly on his bed in his room. Nurse Juju present throughout session. Patient gives a history of mental illness going back to his late adolescence with command auditory hallucinations they have never totally gone away. He has also had issues with intermittent cocaine use over a number of years. To the point where he is spent 8 behaviors in incarceration related to that he states was initially a second-degree murder charge that was drug related. He denies any other significant drug use except frequent marijuana use. He states he lives with his family. There is getting more short tempered with them the voices continued to get worse to him to hurt himself and perhaps or other people. He denies any physical or sexual abuse as a child. He is vague about any mental illness in the family of origin. Patient does have a 6-year-old daughter who is staying with her mother. Patient appears to have animosity towards the mother though affection to his daughter. He is afraid the voices may become more command telling him to do bad things to the mother of his child. Patient states she has some has college education, does not have a GED. He states his reading is okay and his mathematics is okay. Patient is vague about whether he would take the suicide pill. In any event at this time patient does meet criteria for an acute inpatient psychiatric hospitalization. I feel he does have capacity to sign for admission and for medications thus we'll allow him to continue on a voluntary basis. We did discuss medications. Considering the addictive peace of him will refrain from benzodiazepines or opiates. We'll set him on Seroquel 25 mg at 8 AM noon and 6 PM and 100 mg at at bedtime since he does have some significant insomnia. Hopeless be fairly short stay can stabilize him medically return to stay with his family for follow-up services in the community Tobacco Use In Past 30 Days: 5 or More Cigarettes/Day Alcohol Use: Never Hospital Course Patient's initial paranoia anger psychosis resolved with his compliance with medication, participation in milieu though that was somewhat limited. He has been denying suicidality homicidality voices or visions. He now denies any desire or intent to harm anybody including his daughter's mother. Is planning on returning home with his mother. He is acknowledged compliance with medications and follow-up. Thus at the present time I feel he no longer meets criteria for inpatient psychiatric hospitalization. He'll be discharged today to himself with Rx 1 month the follow-up [facility] outpatient medication management and counseling, refer also to [facility] outpatient substance abuse assessment, refer also to NA Results Blood Pressure 119 / 70 Vital Signs Date Time Temp Pulse Resp B/P Pulse Ox O2 Delivery O2 Flow Rate FiO2 02/01/17 05:35 97.9 88 18 119/70 98 Laboratory Results Test 01/29/17 08:06 Hemoglobin A1c 9.5 % (4.3-6.0) Triglycerides Level 119 MG/DL (42-150) Cholesterol Level 181 MG/DL (120-200) LDL Cholesterol 124 MG/DL (0-99) HDL Cholesterol 33.3 MG/DL (40.0-60.0) Summary of Procedures None done Pending results at discharge: No Medications # of Antipsychotic meds at D/C: 1 Approp Antipsych med options 1 - Minimum of three failed multiple trials of monotherapy. 2 - Documented plan to taper to monotherapy due to previous use of multiple meds OR cross-taper in progress at D/C. 3 - Documentation of augmentation of Clozapine. 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 No delusions. Insight and judgment is poor to fair. Cognition grossly intact Pt Condition on Discharge: Stable Discharge Disposition: Discharge Home Discharge Instructions Diet Instructions: As Tolerated, No Restrictions Activities you can perform: Regular-No Restrictions Scheduled Appointment: Anival Olmos Discharge Time > 30 minutes Discharge/Advance Care Plan Health Problems: (1) Schizophrenia Goals to promote your health * To prevent worsening of your condition and complications * To maintain your health at the optimal level Directions to meet your goals Take your medications as prescribed Follow your dietary instruction Follow activity as directed Keep your appointments as scheduled Take your immunizations and boosters as scheduled If your symptoms worsen call your PCP, if no PCP go to Urgent Care Center or Emergency Room For 28/01 questions related to your inpatient stay or results of tests pending at discharge, please contact Dr. Anthony Andrews at Smoking is Dangerous to Your Health. Avoid second hand smoking Problem Qualifiers (1) Schizophrenia: Qualified Code: F20.0 - Paranoid schizophrenia Anthony Andrews MD Feb 01, 2017 10:03
== END 2017-02-01 12:10 | disposition home or self-care (01) | DRG 885 ==
LOC: NEPE 18:01 → NEDA 01-28 10:30 → H260 01-28 11:27
PROVIDERS: ADMIT Psychiatry & Neurology Psychiatry; ATTEND Psychiatry & Neurology Psychiatry
DX: F20.0 Paranoid schizophrenia (principal); R45.851 Suicidal ideations; E11.65 Type 2 diabetes mellitus with hyperglycemia; F14.10 Cocaine abuse, uncomplicated; G47.00 Insomnia, unspecified; I10 Essential (primary) hypertension; F17.210 Nicotine dependence, cigarettes, uncomplicated; E87.6 Hypokalemia; Z79.84 Long term (current) use of oral hypoglycemic drugs; Z59.0 Homelessness
CPT/HCPCS: 80048; 80053; 80061; 80307; 81001; 82948; 83036; 85025; 96372; J1815; J2060